=== PATIENT | female | born 1985 | race Two or more races ===

== ENCOUNTER 2018-07-07 18:01 | Emergency (ER) | payer SELFPAY ==
[~2018-07-07] VITALS: Ht 154.9 cm; Wt 72.8 kg
[2018-07-07 19:28] VITALS: BP 128/83
== END 2018-07-07 19:37 | disposition home or self-care (01) ==
LOC: ED 19:21
DX: J18.9 Pneumonia, unspecified organism (principal)
CPT/HCPCS: 71046; 99283